=== PATIENT | male | born 1955 | race Caucasian/White ===

== ENCOUNTER 2021-10-26 20:10 | Emergency (ER) | payer OTHER ==
[~2021-10-26] VITALS: Ht 165.1 cm; Wt 59.0 kg
[2021-10-26 20:10] VITALS: BP 144/90
--- NOTE | 2021-10-26 20:10 | NUR ---
PT BROUGHT TO BED 10 VIA [facility]
--- NOTE | 2021-10-26 20:53 | NUR ---
OUTSIDE REQUESTING UPDATE
[2021-10-26 21:17] LABS: BASOPHILS % (AUTO) 0.3 % (0.0-2.0); EOSINOPHILS % (AUTO) 0.8 % (0.0-4.0); HEMATOCRIT 35.5 % (36-52); HEMOGLOBIN 11.5 g/dL (12.0-18.0); LYMPHOCYTES % (AUTO) 15.7 % (20.5-51.1); MEAN CORPUSCULAR HEMOGLOBIN 29 pg (27-31); MEAN CORPUSCULAR HGB CONC 32 g/dL (33-37); MEAN CORPUSCULAR VOLUME 88.9 fL (80-94); MONOCYTES # (AUTO) 0.7 K/uL (0.8-1.0); MONOCYTES % (AUTO) 11.3 % (1.7-9.3); NEUTROPHILS # (AUTO) 4.6 K/uL (1.8-7.7); NEUTROPHILS % (AUTO) 71.9 % (42.2-75.2); PLATELET COUNT (AUTO) 173 K/uL (140-450); RED BLOOD CELL COUNT(AUTO) 3.99 MIL/uL (4.20-6.10); WHITE BLOOD COUNT (AUTO) 6.4 K/uL (4.8-10.8)
[2021-10-26 21:45] LABS: ANION GAP 11.6 (8-16); CARBON DIOXIDE 28.2 mmol/L (21-32); CHLORIDE 108 mmol/L (98-107); CREATININE 1.2 mg/dL (0.6-1.3); GFR ARICAN-AMERICAN 78 mL/min (>90); GLUCOSE 133 mg/dL (74-106); POTASSIUM 4.8 mmol/L (3.5-5.1); SODIUM SERUM 143 mmol/L (136-145); UREA NITROGEN, BLOOD 24 mg/dL (7-18)
[2021-10-26 21:54] LABS: ALBUMIN 3.1 g/dL (3.4-5.0); ASPARTATE AMINOTRANSFERASE 12 U/L (15-37); TOTAL BILIRUBIN 0.3 mg/dL (0.0-1.0)
--- NOTE | 2021-10-26 22:35 | NUR ---
PT MOVED TO ER BED 11
[2021-10-26] MEDS ORDERED: NACL 0.9% 1,000 ML IV ONE (23:40)
[2021-10-27 01:18] LABS: BARBITURATE, URINE NEGATIVE ng/ml (NEG <=200); BENZODIAZEPINE, URINE NEGATIVE ng/mL (NEG <=200); CANNABINOID, URINE POSITIVE ng/mL (NEG <=50); COCAINE, URINE NEGATIVE ng/mL (NEG <=300); OPIATE, URINE NEGATIVE ng/mL (NEG <=2000); PHENCYCLIDINE SCREEN,URINE NEGATIVE ng/mL (NEG <=25)
[2021-10-27 01:22] VITALS: BP 158/75
--- NOTE | 2021-10-27 01:23 | NUR ---
Patient discharged with v/s stable. Written and verbal after care instructions given and explained. Patient verbalized understanding. Ambulatory with steady gait. All questions addressed prior to discharge. Advised to follow up with PMD.
== END 2021-10-27 01:23 | disposition home or self-care (01) ==
LOC: MED 20:10
DX: R55 Syncope and collapse (principal); Z85.46 Personal history of malignant neoplasm of prostate; Z72.89 Other problems related to lifestyle
CPT/HCPCS: 36415; 80053; 80305; 84484; 85025; 96360; 99283; G0482; J7030